=== PATIENT | male | born 1945 | race Caucasian/White ===

== ENCOUNTER 2017-01-23 21:27 | Emergency (ER) | payer MEDICARE ==
[~2017-01-23] VITALS: Ht 177.8 cm; Wt 80.0 kg
[~2017-01-23 21:27] MED LIST: ASPI325T PO; FLUO20SO3 PO; METO50TA PO; SODI1 PO; SOTA80TA PO; XANA2TAB2 PO
[2017-01-23 21:40] VITALS: BP 137/73; PULSE 60; RESP 18; TEMP 97.4; O2SAT 98
[2017-01-23 22:20] VITALS: BP 160/72; PULSE 78; RESP 18; O2SAT 98
[2017-01-23] MEDS ORDERED: SODIUM CHLOR 0.9% 1000 ML INJ 1,000 ML IV SCH (22:42)
[2017-01-23] MEDS ORDERED: SOTA80TA PO (22:43)
[2017-01-23] MEDS ORDERED: ALPR0.5T3 PO (22:43)
[2017-01-23] MEDS ORDERED: METO50TA PO (22:43)
[2017-01-23] MEDS ORDERED: FLUO40CA PO (22:43)
[2017-01-23] MEDS ORDERED: AMLO5TAB2 PO (22:44)
[2017-01-23] MEDS ORDERED: ASPI325T PO (22:44)
[2017-01-23] MEDS ORDERED: ONDANSETRON HCL 4 MG/2 ML VIAL IVP ONE (22:45)
--- NOTE | 2017-01-23 22:47 | PD ---
HPI Chief Complaint: Dizziness Time Seen by Provider: 22:31 Travel History International Travel<30 days: No Contact w/Intl Traveler<30days: No Traveled to known affect area: No History of Present Illness HPI 71-year-old male with history of testicular cancer in remission since the 1980s , IHSS treated with ablation with resultant V. V. tach and AICD placement, here for evaluation of nausea, vomiting, diarrhea, dizziness. Symptoms started 6 days ago on Friday with nausea and several episodes of vomiting. Patient felt nauseous throughout the weekend, then on Friday started to have diarrhea. The patient has had several episodes of loose bowel movements. Bowel movements and emesis are nonbloody. He is having occasional abdominal cramping. No fevers or chills. He had a similar presentation about 2 years ago and was found to be severely hyponatremic. No recent antibiotic use. No recent travel outside the country. PFSH Past Medical History Arthritis: No Asthma: No Autoimmune Disease: No Anxiety: Yes Depression: Yes Heart Rhythm Problems: Yes (VT) Cancer: Yes Cardiovascular Problems: Yes High Cholesterol: No Chemotherapy: Yes Chest Pain: No Congestive Heart Failure: No Cerebrovascular Accident: No Diabetes: No Endocrine: No GERD: No Genitourinary: No Hiatal Hernia: No Hypertension: Yes Immune Disorder: No Kidney Stones: No Musculoskeletal: No Neurologic: Yes (neurogenic syncope) Psychiatric: Yes Reproductive: No Respiratory: No Migraines: No Radiation Therapy: No Renal Failure: No Seizures: No Sickle Cell Disease: No Sleep Apnea: No Thyroid Disease: Yes (thyroiditis in 2015) Ulcer: No Past Surgical History Abdominal Surgery: Yes (multiple r/t ca) Arteriovenous Shunt: No Cardiac Surgery: Yes (pacer/defib, alcohol ablation) Ear Surgery: No Endocrine Surgery: No Eye Surgery: No Genitourinary Surgery: No Insulin Pump: No Joint Replacement: No Oral Surgery: No Pacemaker: Yes (medtronic) Thoracic Surgery: No Social History Alcohol Use: No Tobacco Use: No Substance Use: No Allergies-Medications (Allergen,Severity, Reaction): Coded Allergies: Reglan (Verified Allergy, Severe, n/v, 01/23/17) Nitroglycerin (Verified Allergy, Unknown, 01/23/17) Reported Meds & Prescriptions Reported Meds & Active Scripts Active Reported Aspirin 325 Mg Tab 325 Mg PO DAILY Amlodipine (Amlodipine Besylate) 5 Mg Tab 5 Mg PO DAILY Sotalol (Sotalol HCl) 80 Mg Tab 80 Mg PO BID Fluoxetine (Fluoxetine HCl) 40 Mg Cap 40 Cap PO DAILY Alprazolam 0.5 Mg Tab 0.5 Mg PO Q6H PRN Metoprolol Tartrate 50 Mg Tab 50 Mg PO BID Review of Systems Except as stated in HPI: all other systems reviewed are Neg Physical Exam Narrative GENERAL: Well-developed, well-nourished, awake, alert, no acute distress. SKIN: Focused skin assessment warm/dry. HEAD: Atraumatic. Normocephalic. EYES: Pupils equal and round. No scleral icterus. No injection or drainage. ENT: Mucous membranes pink and dry. NECK: Trachea midline. No JVD. CARDIOVASCULAR: Regular rate and rhythm. RESPIRATORY: No accessory muscle use. Clear to auscultation. Breath sounds equal bilaterally. GASTROINTESTINAL: Abdomen soft, non-tender, nondistended. MUSCULOSKELETAL: No obvious deformities. No clubbing. No cyanosis. No edema. NEUROLOGICAL: Awake and alert. No obvious cranial nerve deficits. Motor grossly within normal limits. Normal speech. PSYCHIATRIC: Appropriate mood and affect; insight and judgment normal. Data Data Last Documented VS Vital Signs Date Time Temp Pulse Resp B/P Pulse Ox O2 Delivery O2 Flow Rate FiO2 01/23/17 22:20 16 98 Room Air 01/23/17 22:20 78 160/72 01/23/17 21:40 97.4 Orders Complete Blood Count With Diff (01/23/17 22:42) Comprehensive Metabolic Panel (01/23/17 22:42) Lipase (01/23/17 22:42) Prothrombin Time / Inr (Pt) (01/23/17 22:42) Act Partial Throm Time (Ptt) (01/23/17 22:42) Urinalysis - C+S If Indicated (01/23/17 22:42) Iv Access Insert/Monitor (01/23/17 22:42) Ecg Monitoring (01/23/17 22:42) Oximetry (01/23/17 22:42) Ondansetron Inj (Zofran Inj) (01/23/17 22:45) Sodium Chlor 0.9% 1000 Ml Inj (Ns 1000 M (01/23/17 22:42) Sodium Chloride 0.9% Flush (Ns Flush) (01/23/17 22:45) Influenzae A/B Antigen (01/23/17 22:45) Ct Brain W/O Iv Contrast(Rout) (01/24/17 ) Ct Abd/Pel W Iv Contrast(Rout) (01/24/17 ) Potassium Chloride Powder (Kcl Powder) (01/24/17 00:15) Electrocardiogram (01/24/17 ) Meclizine (Antivert) (01/24/17 00:30) Labs Laboratory Tests Test 01/23/17 01/23/17 22:50 23:25 Urine Color STRAW Urine Turbidity CLEAR Urine pH 5.5 Urine Specific [place] 1.003 Urine Protein NEG mg/dL Urine Glucose (UA) NEG mg/dL Urine Ketones NEG mg/dL Urine Occult Blood NEG Urine Nitrite NEG Urine Bilirubin NEG Urine Leukocyte Esterase NEG Urine RBC 0-2 /hpf Urine WBC 0-2 /hpf Urine Squamous Epithelial 0-5 /hpf Cells Urine Bacteria NONE /hpf Microscopic Urinalysis Comment CULT NOT INDICATED White Blood Count 7.5 TH/MM3 Red Blood Count 4.49 MIL/MM3 Hemoglobin 13.4 GM/DL Hematocrit 39.6 % Mean Corpuscular Volume 88.2 FL Mean Corpuscular Hemoglobin 30.0 PG Mean Corpuscular Hemoglobin 34.0 % Concent Red Cell Distribution Width 12.9 % Platelet Count 238 TH/MM3 Mean Platelet Volume 7.0 FL Neutrophils (%) (Auto) 66.9 % Lymphocytes (%) (Auto) 18.0 % Monocytes (%) (Auto) 10.8 % Eosinophils (%) (Auto) 3.3 % Basophils (%) (Auto) 1.0 % Neutrophils # (Auto) 5.0 TH/MM3 Lymphocytes # (Auto) 1.4 TH/MM3 Monocytes # (Auto) 0.8 TH/MM3 Eosinophils # (Auto) 0.2 TH/MM3 Basophils # (Auto) 0.1 TH/MM3 CBC Comment DIFF FINAL Differential Comment Prothrombin Time 12.0 SEC Prothromb Time International 1.1 RATIO Ratio Activated Partial 27.3 SEC Thromboplast Time Sodium Level 136 MEQ/L Potassium Level 3.3 MEQ/L Chloride Level 104 MEQ/L Carbon Dioxide Level 21.6 MEQ/L Anion Gap 10 MEQ/L Blood Urea Nitrogen 7 MG/DL Creatinine 1.00 MG/DL Estimat Glomerular Filtration 74 ML/MIN Rate Random Glucose 111 MG/DL Calcium Level 9.1 MG/DL Total Bilirubin 0.9 MG/DL Aspartate Amino Transf 31 U/L (AST/SGOT) Alanine Aminotransferase 33 U/L (ALT/SGPT) Alkaline Phosphatase 152 U/L Total Protein 7.9 GM/DL Albumin 4.0 GM/DL Lipase 186 U/L MDM Medical Decision Making Medical Screen Exam Complete: Yes Emergency Medical Condition: Yes Differential Diagnosis Dehydration, metabolic abnormality, gastroenteritis Narrative Course Initial vital signs show heart rate 60, blood pressure 137/73, pulse ox 98% on room air, oral temp of 97.4F. CBC shows WBC 7.5, hemoglobin 13.4, hematocrit 39.6, platelets 238. CMP is markable for potassium of 3.3 which was replaced orally, otherwise unremarkable. UA is unremarkable, within normal limits. Patient was given IV fluids, antiemetics, and potassium replacement. On reassessment he states he feels well, however when he sits up he feels dizzy. He does have history of vertigo, and symptoms sound like benign positional vertigo with resolution of dizziness at rest. He also tells me that he is having some bloating/gas pains in his abdomen. There are no peritoneal signs on exam. Mild periumbilical tenderness. He does have a large surgical scar to his midline anterior abdomen that goes to his left upper abdomen. She reports history of 3 abdominal surgeries for removal of cancer which was successful several years ago. CT abdomen pelvis will be ordered as well as CT head to assess for any acute abnormalities. At approximately midnight at the end of my shift the patient was signed out to Dr. Travis to follow-up with CT scans, and formulated disposition. If CT scans are negative for acute process, the patient can be discharged home with outpatient follow-up. Avery Live MD Jan 23, 2017 22:47
[2017-01-23 23:28] LABS: BLOOD, URINE NEG (NEG); GLUCOSE,URINE NEG (NEG); KETONE, URINE NEG (NEG); NITRITE,URINE NEG (NEG); PH, URINE 5.5 (5.0-8.5)
[2017-01-23 23:37] LABS: URINE COLOR STRAW (YELLW/STRAW); WBC, URINE 0-2 /hpf (0-5)
[2017-01-23 23:38] LABS: COMMENT (UR) CULT NOT INDICATED; CULTURE IF INDICATED CULT NOT INDICATED; RBC, URINE 0-2 /hpf (0-3); SQUAMOUS EPITHELIAL CELL URINE 0-5 /hpf (0-5)
[2017-01-23 23:39] LABS: BASOPHIL # 0.1 TH/MM3 (0-0.2); EOSINOPHIL # 0.2 TH/MM3 (0-0.4); EOSINOPHIL % 3.3 % (0.0-4.0); HEMATOCRIT 39.6 % (39.0-51.0); HEMO FLAGS DIFF FINAL; LYMPHOCYTE # 1.4 TH/MM3 (1.0-4.8); MEAN CELL VOLUME 88.2 FL (80.0-100.0); MONO % 10.8 % (0.0-8.0); NEUT % 66.9 % (16.0-70.0); PLATELET COUNT 238 TH/MM3 (150-450); RED BLOOD COUNT 4.49 MIL/MM3 (4.50-5.90); RED CELL DISTRIBUTION WIDTH 12.9 % (11.6-17.2); WHITE BLOOD COUNT 7.5 TH/MM3 (4.0-11.0)
[2017-01-23] MEDS: SODIUM CHLORIDE 0.9% FLUSH 10 ML FLUSH IV FLUSH PRN (23:40)
[2017-01-23 23:42] LABS: CHLORIDE 104 MEQ/L (98-107); POTASSIUM 3.3 MEQ/L (3.5-5.1); SODIUM (NA) 136 MEQ/L (136-145)
[2017-01-23 23:46] LABS: ANION GAP 10 MEQ/L (5-15); APTT (PATIENT) 27.3 SEC (24.3-30.1); BICARBONATE 21.6 MEQ/L (21.0-32.0); BLOOD UREA NITROGEN 7 MG/DL (7-18); INTERNATIONAL NORMALIZED RATIO 1.1 RATIO
[2017-01-23 23:49] LABS: ALT (GPT) 33 U/L (12-78); AST (GOT) 31 U/L (15-37); GLOMERULAR FILTRATION RATE 74 ML/MIN (>89)
[2017-01-23 23:51] LABS: TOTAL BILIRUBIN ADULT 0.9 MG/DL (0.2-1.0)
[2017-01-23 23:52] LABS: ALKALINE PHOSPHATASE 152 U/L (45-117)
[2017-01-24] MEDS ORDERED: POTASSIUM CHLORIDE 20 MEQ PWD PACKET PO ONE (00:15)
[2017-01-24] MEDS ORDERED: MECLIZINE HCL 25 MG TAB PO ONE (00:30)
--- NOTE | 2017-01-24 00:30 | PD ---
Physical Exam Date Seen by Provider: Jan 24, 2017 Time Seen by Provider: 00:28 Narrative Accepted in transfer of care from Dr. Live GENERAL: Well-developed well-nourished pleasant male in no acute distress no respiratory distress GASTROINTESTINAL: Abdomen soft, mild left sided periumbilical tenderness, no guarding or rebound, nondistended. Data Data Last Documented VS Vital Signs Date Time Temp Pulse Resp B/P Pulse Ox O2 Delivery O2 Flow Rate FiO2 01/24/17 02:25 74 16 114/78 100 01/24/17 00:50 Room Air 01/23/17 21:40 97.4 Orders Complete Blood Count With Diff (01/23/17 22:42) Comprehensive Metabolic Panel (01/23/17 22:42) Lipase (01/23/17 22:42) Prothrombin Time / Inr (Pt) (01/23/17 22:42) Act Partial Throm Time (Ptt) (01/23/17 22:42) Urinalysis - C+S If Indicated (01/23/17 22:42) Iv Access Insert/Monitor (01/23/17 22:42) Ecg Monitoring (01/23/17 22:42) Oximetry (01/23/17 22:42) Ondansetron Inj (Zofran Inj) (01/23/17 22:45) Sodium Chlor 0.9% 1000 Ml Inj (Ns 1000 M (01/23/17 22:42) Sodium Chloride 0.9% Flush (Ns Flush) (01/23/17 22:45) Influenzae A/B Antigen (01/23/17 22:45) Ct Brain W/O Iv Contrast(Rout) (01/24/17 ) Ct Abd/Pel W Iv Contrast(Rout) (01/24/17 ) Potassium Chloride Powder (Kcl Powder) (01/24/17 00:15) Electrocardiogram (01/24/17 ) Meclizine (Antivert) (01/24/17 00:30) Iohexol 350 Inj (Omnipaque 350 Inj) (01/24/17 01:11) Labs Laboratory Tests Test 01/23/17 01/23/17 22:50 23:25 Urine Color STRAW Urine Turbidity CLEAR Urine pH 5.5 Urine Specific [place] 1.003 Urine Protein NEG mg/dL Urine Glucose (UA) NEG mg/dL Urine Ketones NEG mg/dL Urine Occult Blood NEG Urine Nitrite NEG Urine Bilirubin NEG Urine Leukocyte Esterase NEG Urine RBC 0-2 /hpf Urine WBC 0-2 /hpf Urine Squamous Epithelial 0-5 /hpf Cells Urine Bacteria NONE /hpf Microscopic Urinalysis Comment CULT NOT INDICATED White Blood Count 7.5 TH/MM3 Red Blood Count 4.49 MIL/MM3 Hemoglobin 13.4 GM/DL Hematocrit 39.6 % Mean Corpuscular Volume 88.2 FL Mean Corpuscular Hemoglobin 30.0 PG Mean Corpuscular Hemoglobin 34.0 % Concent Red Cell Distribution Width 12.9 % Platelet Count 238 TH/MM3 Mean Platelet Volume 7.0 FL Neutrophils (%) (Auto) 66.9 % Lymphocytes (%) (Auto) 18.0 % Monocytes (%) (Auto) 10.8 % Eosinophils (%) (Auto) 3.3 % Basophils (%) (Auto) 1.0 % Neutrophils # (Auto) 5.0 TH/MM3 Lymphocytes # (Auto) 1.4 TH/MM3 Monocytes # (Auto) 0.8 TH/MM3 Eosinophils # (Auto) 0.2 TH/MM3 Basophils # (Auto) 0.1 TH/MM3 CBC Comment DIFF FINAL Differential Comment Prothrombin Time 12.0 SEC Prothromb Time International 1.1 RATIO Ratio Activated Partial 27.3 SEC Thromboplast Time Sodium Level 136 MEQ/L Potassium Level 3.3 MEQ/L Chloride Level 104 MEQ/L Carbon Dioxide Level 21.6 MEQ/L Anion Gap 10 MEQ/L Blood Urea Nitrogen 7 MG/DL Creatinine 1.00 MG/DL Estimat Glomerular Filtration 74 ML/MIN Rate Random Glucose 111 MG/DL Calcium Level 9.1 MG/DL Total Bilirubin 0.9 MG/DL Aspartate Amino Transf 31 U/L (AST/SGOT) Alanine Aminotransferase 33 U/L (ALT/SGPT) Alkaline Phosphatase 152 U/L Total Protein 7.9 GM/DL Albumin 4.0 GM/DL Lipase 186 U/L [facility] Medical Record Reviewed: Yes Supervised Visit with ENMANUEL: No Interpretation(s) EKG sinus rhythm borderline first-degree AV block heart rate 64 prolonged QT incomplete left bundle-branch block QRS V3 V4 consistent with LVH versus age- indeterminate anterior infarct LVH inferior lateral ST-T changes consistent with hypertrophy versus ischemia; EKG is essentially unchanged from 2015 CBC & BMP Diagram 01/23/17 23:25 Coagulation studies: Within normal range Urinalysis: Within normal limits Last Impressions Head CT 4/21/17 0000 Signed Impressions: Service Date/Time: Tuesday, January 24, 2017 00:22 - CONCLUSION: No acute disease. Jayson Livingston Jr., MD Abdomen/Pelvis CT 01/24/17 0000 Signed Impressions: Service Date/Time: Tuesday, January 24, 2017 00:27 - CONCLUSION: 1. Well-distended urinary bladder. 2. Spigellian hernia containing fat. 3. Prior cholecystectomy. 4. No acute abnormality. Jayson Livingston Jr., MD Differential Diagnosis Accepted in transfer of care from Dr. Live; Please refer to his dictation Narrative Course Accepted in transfer care from ; For follow-up of pending CT/imaging studies and patient disposition Imaging study identifies a ventral hernia with some omental fat; rectal exam performed which is enlarged prostate with midline cell service no mass rectal vault is empty except for some brown mucus without gross red blood; Hemoccult from testing performed. Patient's case discussed with on-call general surgeon. Patient is desirous of being discharged home is aware the general surgeon recommends outpatient follow-up. Patient has been on meclizine in the past and provided prescription for dizziness complaint with meclizine. Patient stable for outpatient management HemaPrompt Test Point of Care Internal Pos. & Neg. Controls: Passed Fecal Specimen Occult Blood: Negative Physician Communication Physician Communication discussed with Dr Badillo- who had the opportunity to review the patient 's CT; he will see in the office call for appointment Diagnosis Primary Impression: Dizziness Additional Impression: Ventral hernia Referrals: General Surgeon call for appointment Primary Care Physician call for appointment Patient Instructions: General Instructions Additional Instruction: Encourage/increase fluid hydration Takes Phenergan as prescribed as needed for nausea vomiting Take meclizine as prescribed as needed for dizziness Follow-up with general surgeon Follow-up with primary care provider Return to the emergency department for any concerns or change in condition May take acetaminophen/Tylenol as needed for fever 100.4F or greater Med/Other Pt SpecificInfo: Prescription(s) given Scripts Promethazine (Phenergan)25 Mg Tab25 Mg PO Q6H PRN (Nausea/Vomiting) #10 TAB Ref 0 Prov:Kandis Travis MD 01/24/17 Meclizine HCl (Meclizine 25)25 Mg Tab25 Mg PO Q6HR PRN (DIZZINESS) #12 Prov:Kandis Travis MD 01/24/17 Disposition: 01 DISCHARGE HOME Condition: Stable Kandis Travis MD Jan 24, 2017 00:30
[2017-01-24] MEDS: SODIUM CHLORIDE 0.9% FLUSH 10 ML FLUSH IV FLUSH PRN (00:47)
[2017-01-24 00:50] VITALS: BP 146/86; PULSE 74; RESP 16; O2SAT 99
--- NOTE | 2017-01-24 01:07 | RADHPO ---
EXAM DATE/TIME: 01/24/2017 00:22 [facility] COMPARISON: CT BRAIN W/O CONTRAST, June 10, 2015, 9:28. INDICATIONS : Dizziness with nausea and vomiting. RADIATION DOSE: 66.27 CTDIvol (mGy) MEDICAL HISTORY : Hypertension. Diabetes. SURGICAL HISTORY : Pacemaker. ENCOUNTER: Initial ACUITY: 4 - 6 days PAIN SCALE: 0/10 LOCATION: cranial TECHNIQUE: Multiple contiguous axial images were obtained of the head. Using automated exposure control and adj ustment of the mA and/or kV according to patient size, radiation dose was kept as low as reasonably a chievable to obtain optimal diagnostic quality images. FINDINGS: CEREBRUM: The ventricles are normal for age. No evidence of midline shift, mass lesion, hemorrhage or acute in farction. No extra-axial fluid collections are seen. POSTERIOR FOSSA: The cerebellum and brainstem are intact. The 4th ventricle is midline. The cerebellopontine angle i s unremarkable. EXTRACRANIAL: The visualized portion of the orbits is intact. SKULL: The calvaria is intact. No evidence of skull fracture. CONCLUSION: No acute disease. Jayson Livingston Jr., MD on January 24, 2017 at 1:04 Board Certified Radiologist. This report was verified electronically.
--- NOTE | 2017-01-24 01:10 | RADHPO ---
EXAM DATE/TIME: 01/24/2017 00:27 [facility] COMPARISON: No previous studies available for comparison. INDICATIONS : Nausea, vomiting, and diarrhea. IV CONTRAST: 96 cc Omnipaque 350 (iohexol) IV ORAL CONTRAST: No oral contrast ingested. RADIATION DOSE: 16.42 CTDIvol (mGy) MEDICAL HISTORY : Hypertension. Carcinoma, testicular. Diabetes. SURGICAL HISTORY : Pacemaker. Cholecystectomy. ENCOUNTER: Initial ACUITY: 4 - 6 days PAIN SCALE: 0/10 LOCATION: Abdomen. TECHNIQUE: Volumetric scanning of the abdomen and pelvis was performed. Using automated exposure control and ad justment of the mA and/or kV according to patient size, radiation dose was kept as low as reasonably achievable to obtain optimal diagnostic quality images. FINDINGS: LOWER LUNGS: Linear scarring within the left lung base. Coronary artery atherosclerotic calcifications. Top normal heart size. LIVER: Homogeneous density without lesion. There is no dilation of the biliary tree. Gallbladder is surgica lly absent. SPLEEN: Normal size without lesion. PANCREAS: Within normal limits. KIDNEYS: Normal in size and shape. There is no mass, stone or hydronephrosis. ADRENAL GLANDS: Within normal limits. VASCULAR: There is no aortic aneurysm. BOWEL/MESENTERY: The stomach, small bowel, and colon demonstrate no acute abnormality. There is no free intraperitone al air or fluid. Fluid is seen within the rectum. ABDOMINAL WALL: A. Spigellian hernia containing omental fat is seen on the left. RETROPERITONEUM: There is no lymphadenopathy. BLADDER: Urinary bladder is well distended. No stone or mass. REPRODUCTIVE: Within normal limits. INGUINAL: There is no lymphadenopathy or hernia. MUSCULOSKELETAL: Within normal limits for patient age. CONCLUSION: 1. Well-distended urinary bladder. 2. Spigellian hernia containing fat. 3. Prior cholecystectomy. 4. No acute abnormality. Jayson Livingston Jr., MD on January 24, 2017 at 1:05 Board Certified Radiologist. This report was verified electronically.
[2017-01-24] MEDS ORDERED: IOHEXOL 350 MG/ML 10 ML VIAL (for RAD DIAG) IV ONE (01:11)
[2017-01-24] MEDS ORDERED: PROM25TA5 PO (02:11)
[2017-01-24] MEDS ORDERED: MECL1TAB42 PO (02:11)
[2017-01-24 02:25] VITALS: BP 114/78
--- NOTE | 2017-01-24 19:53 | EKG ---
Date Performed: 01/24/2017 Time Performed: 00:56:02 PTAGE: 71 years EKG: Sinus rhythm LVH with secondary repolarization abnormality Compared to prior tracing no significant change Abnorm al ECG PREVIOUS TRACING : 01/24/2017 00.55 DOCTOR: Refugio Street Interpretating Date/Time 01/24/2017 19:53:14
== END 2017-01-24 02:28 | disposition home or self-care (01) ==
LOC: PHED 21:27
DX: R42 Dizziness and giddiness (principal); K43.9 Ventral hernia without obstruction or gangrene; R94.31 Abnormal electrocardiogram [ECG] [EKG]; R11.2 Nausea with vomiting, unspecified; R19.7 Diarrhea, unspecified; I10 Essential (primary) hypertension; I44.0 Atrioventricular block, first degree; Z95.0 Presence of cardiac pacemaker
CPT/HCPCS: 70450; 74177; 80053; 81001; 83690; 85025; 85610; 85730; 87804; 93005; 96361; 96374; 99284; J2405; J7030; Q9967